=== PATIENT | male | born 1955 | race American Indian/Alaskan Native ===

== ENCOUNTER 2017-04-05 22:57 | Inpatient (IN) | payer MEDICAID ==
[~2017-04-05 22:57] MED LIST: ROCEPHIN/NS 2 GM/100 ML 2 GM/100 ML BAG IV ONE
[2017-04-05] MEDS ORDERED: NACL 0.9% 1000 ML 2,000 ML IV ONE (23:38)
[2017-04-05] MEDS ORDERED: NACL 0.9% 1000 ML 1,000 ML IV ONE (23:38)
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
[2017-04-05] MEDS ORDERED: ANCEF IV ONE (23:51)
[2017-04-05] MEDS ORDERED: NS IV ONE (23:51)
[2017-04-06 01:54] LABS: Hematocrit 40.9 % (35.5-45.6); Hemoglobin 13.8 gm/dl (11.8-15.2); Mean Corpuscular HGB Conc 34 % (32-34); Mean Corpuscular Hemoglobin 31 pg (28-32); Mean Corpuscular Volume 92 fl (84-94); Platelet Count 352 K/mm3 (140-440); Red Blood Count 4.44 M/mm3 (3.65-5.03); Red Cell Distribution Width 13.6 % (13.2-15.2); White Blood Count 12.3 K/mm3 (4.5-11.0)
[2017-04-06 02:04] LABS: INR 1.19 (0.87-1.13)
[2017-04-06 02:05] LABS: Partial Thromboplastin Time 27.4 Sec. (24.2-36.6)
--- NOTE | 2017-04-06 02:09 | Cat Scan Report ---
FINAL REPORT EXAM: CT CERVICAL SPINE WO CON HISTORY: ams FALL TECHNIQUE: Routine axial imaging was obtained of the cervical spine with sagittal and coronal reconstructions. FINDINGS: There is no evidence of fracture or soft tissue injury. The C1-C2 articulation appears intact. There is mild narrowing of the C3-C4 disc. The canal size is normal. There is moderate to severe narrowing of the C5-C6 and C6-C7 disc with endplate spurring. The pre vertebral soft tissues appear intact. IMPRESSION: No evidence of acute fracture or soft tissue injury. Degenerative arthritic changes as described.
--- NOTE | 2017-04-06 02:12 | Cat Scan Report ---
FINAL REPORT EXAM: CT HEAD/BRAIN WO CON HISTORY: Altered Mental Status TECHNIQUE: Routine axial imaging was obtained of the brain without IV contrast. FINDINGS: There is been a previous right temporal craniotomy. There encephalomalacia in the right temporal lobe. There is no evidence of acute stroke or hemorrhage. There is moderate generalized volume loss. The ventricular system is appropriate in size and is symmetric. The sinuses are remarkable for 13 millimeter mucous retention cyst/polyp in the right maxillary sinus. IMPRESSION: Previous right temporal craniotomy. No evidence of acute stroke or hemorrhage.
[2017-04-06 02:18] LABS: Alanine Aminotransferase 53 units/L (7-56); Albumin/Globulin Ratio 0.8 %; Alkaline Phosphatase 48 units/L (35-129); Anion Gap 23 mmol/L; BUN/Creatinine Ratio 52; Blood Urea Nitrogen 47 mg/dL (9-20); Calcium 8.4 mg/dL (8.4-10.2); Carbon Dioxide 24 mmol/L (22-30); Chloride 106.8 mmol/L (98-107); Glucose 110 mg/dL (75-100); Potassium 3.8 mmol/L (3.6-5.0); Sodium 150 mmol/L (137-145); Total Protein 6.8 g/dL (6.3-8.2)
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
[2017-04-06] MEDS ORDERED: TYLENOL PO ONE (02:36)
[2017-04-06 02:49] LABS: Urine Drugs of Abuse Note Disclamer
[2017-04-06 02:57] LABS: Bilirubin,Urine NEG (Negative); Blood,Urine LG (Negative); Ketones,Urine 20 mg/dL (Negative); Leukocyte Esterase,Urine SM (Negative); Nitrite,Urine NEG (Negative)
[2017-04-06 03:06] LABS: Basophils % (Manual) 0 % (0.0-1.8); Blastocytes % (Manual) 0 %; Diff Status Complete; Eosinophils % (Manual) 0 % (0.0-4.3); Platelet Estimate Consistent w Auto; RBC Morphology Normal
[2017-04-06] MEDS ORDERED: XYLOCAINE 2%/ EPI 1:200,000 INFILTRATI ONE (03:17)
[2017-04-06] MEDS ORDERED: VANCOMYCIN VIAL IV ONE (03:35)
[2017-04-06] MEDS ORDERED: VANCOMYCIN 1,750 MG in NACL 0.9% 500 ML 500 ML IV ONE (04:00)
[2017-04-06] MEDS ORDERED: VANCOMYCIN PHARMACY TO DOSE IV SCH (04:00)
--- NOTE | 2017-04-06 05:16 | Cat Scan Report ---
FINAL REPORT EXAM: CT ABDOMEN WO CON HISTORY: fever abd pain TECHNIQUE: Routine imaging was obtained of the abdomen extending from the diaphragmatic domes to the iliac crest without oral or IV contrast. FINDINGS: There is patchy airspace disease in the left lower lobe and lingula compatible with pneumonia. Pleural fluid is not seen. The liver, gallbladder, spleen, and pancreas appear normal. The adrenal glands are normal in configuration. The kidneys show no evidence of stones or hydronephrosis. There is a 19 millimeter simple cortical cyst in the right kidney medially. The bowel loops are normal in caliber and course. There is no evidence of free fluid or adenopathy. Skeletal structures reveal arthritic changes in the lower lumbar spine. IMPRESSION: Patchy airspace disease in left lower lobe and lingula compatible with pneumonia. No acute process in the abdomen. 19 millimeter simple cortical cyst in the right kidney.
[2017-04-06] MEDS ORDERED: ZITHROMAX 500 MG in NACL 0.9% 250ML 250 ML IV ONE (06:30)
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
--- NOTE | 2017-04-06 08:27 | XRay Report ---
PORTABLE CHEST: ams An AP portable view of the chest demonstrates a normal cardiac contour considering the limits of this technique. The lungs are clear with no evidence of infiltrate, fluid or failure. IMPRESSION: Normal portable chest.
--- NOTE | 2017-04-06 08:30 | XRay Report ---
XRAY RIGHT ANKLE 2 VIEWS: 04/05/17 22:57:00 CLINICAL: Injury and pain. FINDINGS: Moderate diffuse osteopenia. The ankle mortise is intact.No fracture or dislocation. Mild medial and lateral soft tissue swelling. No soft tissue air or foreign body. IMPRESSION: Mild soft tissue injury.
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
[2017-04-06] MEDS ORDERED: TYLENOL PO PRN (09:00)
[2017-04-06] MEDS ORDERED: ZOFRAN IV PRN (09:00)
[2017-04-06] MEDS ORDERED: DULCOLAX PR PRN (10:00)
[2017-04-06] MEDS: NACL 0.9% 1000 ML 1,000 ML IV SCH (13:08)
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
[2017-04-06] MEDS: VANCOMYCIN 1,250 MG in NACL 0.9% 250ML 250 ML IV SCH (18:40)
[2017-04-06] MEDS ORDERED: ROCEPHIN/NS 1 GM/50 ML 1 GM/50 ML BAG IV SCH (22:00)
[2017-04-06] MEDS: ZOSYN/NS 4.5GM/100ML 4.5 GM/100 ML VIAL IV SCH (22:58)
[2017-04-07 06:45] LABS: Basophils % (Auto) 0.2 % (0.0-1.8); Eosinophils % (Auto) 1.1 % (0.0-4.3); Hemoglobin 13.1 gm/dl (11.8-15.2); Mean Corpuscular HGB Conc 33 % (32-34); Mean Corpuscular Hemoglobin 31 pg (28-32); Mean Corpuscular Volume 94 fl (84-94); Platelet Count 275 K/mm3 (140-440); Red Blood Count 4.24 M/mm3 (3.65-5.03); Red Cell Distribution Width 14.2 % (13.2-15.2); White Blood Count 8.4 K/mm3 (4.5-11.0)
[2017-04-07] MEDS: ZOSYN/NS 4.5GM/100ML 4.5 GM/100 ML VIAL IV SCH ×3 (06:59→22:50)
[2017-04-07] MEDS: NACL 0.9% 1000 ML 1,000 ML IV SCH ×2 (07:01→18:39)
[2017-04-07] MEDS ORDERED: ZITHROMAX 500 MG in NACL 0.9% 250ML 250 ML IV ONE (07:30)
[2017-04-07 08:47] LABS: Anion Gap TNR mmol/L; BUN/Creatinine Ratio TNR; Blood Urea Nitrogen TNR mg/dL (9-20); Calcium TNR mg/dL (8.4-10.2); Carbon Dioxide TNR mmol/L (22-30); Chloride TNR mmol/L (98-107); Glucose TNR mg/dL (75-100); Potassium TNR mmol/L (3.6-5.0); Sodium TNR mmol/L (137-145)
--- NOTE | 2017-04-07 10:11 | Gastroenterology Progress Note ---
Assessment and Plan GI: mild increase LFT's after pt found down - doubt severe liver disease - awaiting labs and serologies - will follow for now Subjective Date of service: 04/07/17 Interval history: - no GI or liver complaints overnight Objective - Constitutional Vitals: Temp Pulse Resp BP Pulse Ox 98.7 F 95 H 18 134/71 94 04/07/17 08:47 04/07/17 08:47 04/07/17 08:47 04/07/17 08:47 04/07/17 08:47 General appearance: no acute distress - Respiratory Respiratory: bilateral: CTA - Cardiovascular Rhythm: regular Heart Sounds: Present: S1 & S2 - Gastrointestinal General gastrointestinal: Present: soft, non-tender - Labs CBC & Chem 7: 04/07/17 06:08 04/07/17 06:08 Labs: Laboratory Results - last 24 hr 04/06/17 04/06/17 04/06/17 12:50 12:50 16:28 WBC RBC Hgb Hct MCV MCH MCHC RDW Plt Count Lymph % (Auto) [place] % (Auto) Eos % (Auto) Baso % (Auto) Lymph # [place] # Eos # Baso # Seg Neutrophils % Seg Neutrophils # Sodium Potassium Chloride Carbon Dioxide Anion Gap BUN Creatinine Estimated GFR BUN/Creatinine Ratio Glucose Lactic Acid Calcium Total Creatine Kinase C-Reactive Protein 8.30 H TSH 0.138 L Thyroxine (T4) 9.0 04/06/17 04/07/17 04/07/17 16:34 06:08 06:08 WBC 8.4 RBC 4.24 Hgb 13.1 Hct 40.0 MCV 94 MCH 31 MCHC 33 RDW 14.2 Plt Count 275 Lymph % (Auto) 18.3 [place] % (Auto) 11.4 H Eos % (Auto) 1.1 Baso % (Auto) 0.2 Lymph # 1.5 [place] # 1.0 H Eos # 0.1 Baso # 0.0 Seg Neutrophils % 69.0 Seg Neutrophils # 5.8 Sodium TNR Potassium TNR Chloride TNR Carbon Dioxide TNR Anion Gap TNR BUN TNR Creatinine TNR Estimated GFR TNR BUN/Creatinine Ratio TNR Glucose TNR Lactic Acid Calcium TNR Total Creatine Kinase 5523 H C-Reactive Protein TSH Thyroxine (T4) 04/07/17 07:10 WBC RBC Hgb Hct MCV MCH MCHC RDW Plt Count Lymph % (Auto) [place] % (Auto) Eos % (Auto) Baso % (Auto) Lymph # [place] # Eos # Baso # Seg Neutrophils % Seg Neutrophils # Sodium Potassium Chloride Carbon Dioxide Anion Gap BUN Creatinine Estimated GFR BUN/Creatinine Ratio Glucose Lactic Acid 1.80 Calcium Total Creatine Kinase C-Reactive Protein TSH Thyroxine (T4)
[2017-04-07] MEDS: ZITHROMAX 500 MG in NACL 0.9% 250ML 250 ML IV SCH (11:59)
[2017-04-07 12:25] LABS: Anion Gap 15 mmol/L; BUN/Creatinine Ratio 32; Blood Urea Nitrogen 19 mg/dL (9-20); Calcium 8.1 mg/dL (8.4-10.2); Carbon Dioxide 22 mmol/L (22-30); Glucose 87 mg/dL (75-100); Potassium 3.5 mmol/L (3.6-5.0); Sodium 140 mmol/L (137-145)
--- NOTE | 2017-04-07 13:34 | Progress Note ---
Assessment and Plan Assessment: 1) Sepsis: improving. Etiology most likely multifactorial - CAP/aspiration pneumonia +/- UTI +/- skin and soft tissue infection. CRP=8 2) CAP versus aspiration pneumonia 3) UTI: mild 4) Cellulitis of the right hip versus crush injury - CT showed cellulitis 5) Scrotal and penile skin excoriation / cellulitis ? 6) Elevated LFTs from sepsis 7) elevated CK ? early rhabdo from leg injury Plan: -follow-up blood cultures, urine culture - follow-up procalcitonin -continue zosyn, azithromycin and vancomycin -monitor LFTs Thank you Dr Apodaca for your consultation, will follow up with you. Phyllis Muñiz MD Infectious Diseases Specialist [facility] ([facility]) M [phone] O [phone] Subjective Date of service: 04/07/17 Interval history: Feels better, still pain at genital area, fever trending down Current Antimicrobials: zosyn 04/07 Azithromycin 04/06 Vancomycin 04/06 Previous Antimicrobials: Ceftriaxone Microbiology: Blood cultures: 04/06 ngtd Urine cultures: Objective - Exam Narrative Exam: General appearance: Alert in NAD, conversant Eyes: anicteric sclerae, moist conjunctivae; no lid-lag; PERRLA HENT: Atraumatic; oropharynx clear Neck: Trachea midline; supple, no thyromegaly or lymphadenopathy Lungs: marilyn rhonchi CV: tachycardia Abdomen: Soft, non-tender Extremities: right hip area with erythema and blister/bullae formation Skin: Normal temperature, turgor and texture; no rash, ulcers or subcutaneous nodules Gen: penile and scrotal skin with multiple skin excoriation and severe tenderness Psych: stable mood Neuro: alert and oriented x 1. contracted legs. Lines: No CVL / PICC - Constitutional Vitals: Vital Signs Temp Pulse Resp BP Pulse Ox 98.7 F 95 H 18 134/71 94 04/07/17 08:47 04/07/17 08:47 04/07/17 08:47 04/07/17 08:47 04/07/17 08:47 Temperature -Last 24 Hours Temperature 98.7 F Temperature 99.5 F Temperature 99.5 F Temperature 102.3 F - Labs CBC & Chem 7: 04/07/17 06:08 04/07/17 11:49 Labs: Abnormal lab results 04/06/17 04/06/17 04/06/17 Range/Units 12:50 16:28 16:34 [place] % (Auto) (0.0-7.3) % [place] # (0.0-0.8) K/mm3 Creatinine (0.8-1.5) mg/dL Calcium (8.4-10.2) mg/dL Total Creatine Kinase 5523 H (55-170) units/L C-Reactive Protein 8.30 H (0.00-1.30) mg/dL TSH 0.138 L (0.270-4.200) mlU/mL 04/07/17 04/07/17 Range/Units 06:08 11:49 [place] % (Auto) 11.4 H (0.0-7.3) % [place] # 1.0 H (0.0-0.8) K/mm3 Creatinine 0.6 L (0.8-1.5) mg/dL Calcium 8.1 L (8.4-10.2) mg/dL Total Creatine Kinase (55-170) units/L C-Reactive Protein (0.00-1.30) mg/dL TSH (0.270-4.200) mlU/mL
--- NOTE | 2017-04-07 16:30 | Progress Note ---
Assessment and Plan - Imaging and Cardiology CT scan - abdomen: image reviewed (CT scan of the pelvis demonstrated aforementioned cellulitis. CT scan of the abdomen and pelvis, demonstrates patchy airspace disease in the left lower lobe and lingula compatible with pneumonia.) CT Scan - head: image reviewed (CT scan of the brain and cervical spine were negative for acute findings, ) Assessment and Plan Assessment and plan: Patient is is a 62 years old black male who presents to the Emergency department by EMS. Patient alert to self at present time no family around him, therefore history is limited, unable to obtained history. Per chart and ER physician; Patient found down by bystanders/neighbor for uncertain duration of time and uncertain mechanism. In the Emergency Department, patient was found to be septic, febrile and tachycardic, with hypernatremia, lower left lobe pneumonia, and impressive right thigh/gluteal cellulitis. Severe sepsis secondary right thigh/gluteal cellulitis VS pneumonia Most likely due to cellulitis VS pneumonia Rule out deeper infection Patient meets sepsis criteria with fever, leukocytosis,and lactic acidosis and tachycardia Blood cultures and urine cultures collected prior antibiotic Follow blood cultures Aggressive IV fluid resuscitation and continuous IV fluid Initiated empiric treatment with IV vancomycin, Rocephin and azithromycin Supportive care. Right thigh/gluteal cellulitis CT scan of the pelvis demonstrated aforementioned cellulitis. Initiated empiric treatment with IV vancomycin, Rocephin and azithromycin Infectious diseases consulted Wound care consult Left lower Lobe pneumonia CT scan of the abdomen and pelvis, demonstrates patchy airspace disease in the left lower lobe and lingula compatible with pneumonia. Initiated empiric treatment with IV vancomycin, Rocephin and azithromycin Acute Cystitis IV fluid hydration and patient is on empiric IV antibiotic Urine culture collected Thrombocytopenia Closely monitor Elevated total bilirubin/AST Closely monitor LFT's GI consulted Mild malnutrition Nutrutino consulted Lactic acidosis Secondary to sepsis We will repeat lactic acid level Leukocytosis Secondary to sepsis We will repeat Possible Hyperthyroidism we will obtain Thyroxine and Thyroid perox Skin breakdown skin breakdown to tip of penis with yellow drainage Wound Care consult DVT prophylaxis Lovenox Advance Directives: Yes VTE prophylaxis?: Chemical Contraindication Mechanical VTE Prophylaxis: Treatment Not Indicated Plan of care discussed with patient/family: Yes Subjective Date of service: 04/07/17 Principal diagnosis: Sepsis/Cellulitis Interval history: Symptomatically better Objective - Constitutional Vitals: Vital Signs - 12hr 04/07/17 04/07/17 08:47 15:13 Temperature 98.7 F 99.3 F Pulse Rate 95 H 64 Respiratory 18 20 Rate Blood Pressure 134/71 118/69 O2 Sat by Pulse 94 97 Oximetry General appearance: Present: no acute distress, well-nourished - EENT Eyes: PERRL, EOM intact ENT: hearing intact, clear oral mucosa Ears: bilateral: normal - Neck Neck: supple, normal ROM - Respiratory Respiratory effort: normal Respiratory: bilateral: CTA - Breasts Breasts: normal - Cardiovascular Rhythm: regular Heart Sounds: Present: S1 & S2. Absent: gallop, rub Extremities: pulses intact, No edema, normal color, Full ROM - Gastrointestinal General gastrointestinal: Present: soft, non-tender, non-distended, normal bowel sounds - Genitourinary Male genitourinary: normal - Integumentary Integumentary: clear, warm, dry - Musculoskeletal Musculoskeletal: 1, strength equal bilaterally - Neurologic Neurologic: moves all extremities - Psychiatric Psychiatric: memory intact, appropriate mood/affect, intact judgment & insight - Labs CBC & Chem 7: 04/07/17 06:08 04/08/17 09:52 Labs: Abnormal lab results 04/06/17 04/06/17 04/07/17 Range/Units 16:28 16:34 06:08 [place] % (Auto) 11.4 H (0.0-7.3) % [place] # 1.0 H (0.0-0.8) K/mm3 Creatinine (0.8-1.5) mg/dL Calcium (8.4-10.2) mg/dL Total Creatine Kinase 5523 H (55-170) units/L C-Reactive Protein 8.30 H (0.00-1.30) mg/dL 04/07/17 Range/Units 11:49 [place] % (Auto) (0.0-7.3) % [place] # (0.0-0.8) K/mm3 Creatinine 0.6 L (0.8-1.5) mg/dL Calcium 8.1 L (8.4-10.2) mg/dL Total Creatine Kinase (55-170) units/L C-Reactive Protein (0.00-1.30) mg/dL
[2017-04-07] MEDS: VANCOMYCIN 1,250 MG in NACL 0.9% 250ML 250 ML IV SCH ×2 (18:42→18:44)
[2017-04-08] MEDS: NACL 0.9% 1000 ML 1,000 ML IV SCH ×2 (06:12→18:41)
[2017-04-08] MEDS: ZOSYN/NS 4.5GM/100ML 4.5 GM/100 ML VIAL IV SCH ×3 (06:12→22:16)
[2017-04-08] MEDS: VANCOMYCIN 1,250 MG in NACL 0.9% 250ML 250 ML IV SCH ×4 (06:23→18:38)
[2017-04-08] MEDS: ZITHROMAX 500 MG in NACL 0.9% 250ML 250 ML IV SCH (09:38)
[2017-04-08 11:42] LABS: Alanine Aminotransferase 42 units/L (7-56); Albumin 1.9 g/dL (3.9-5); Albumin/Globulin Ratio 0.5 %; Alkaline Phosphatase 39 units/L (35-129); Anion Gap 14 mmol/L; BUN/Creatinine Ratio 18; Blood Urea Nitrogen 9 mg/dL (9-20); Calcium 7.9 mg/dL (8.4-10.2); Carbon Dioxide 22 mmol/L (22-30); Chloride 105.7 mmol/L (98-107); Glucose 114 mg/dL (75-100); Potassium 3.6 mmol/L (3.6-5.0); Sodium 138 mmol/L (137-145); Total Protein 5.4 g/dL (6.3-8.2)
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
--- NOTE | 2017-04-08 14:52 | Gastroenterology Progress Note ---
Assessment and Plan Liver: pt w/o known h/o prior liver presented w/ mild increase number now resolved - no need further liver eval at this time - other issues per primary team - call if needed Subjective Date of service: 04/08/17 Interval history: - no GI pr liver complaints overnight Objective - Constitutional Vitals: Temp Pulse Resp BP Pulse Ox 98.2 F 79 20 138/78 93 04/08/17 07:15 04/08/17 07:15 04/08/17 07:15 04/08/17 07:15 04/08/17 07:15 General appearance: no acute distress - Respiratory Respiratory: bilateral: CTA - Cardiovascular Rhythm: regular Heart Sounds: Present: S1 & S2 - Gastrointestinal General gastrointestinal: Present: soft, non-tender - Labs CBC & Chem 7: 04/07/17 06:08 04/08/17 09:52 Labs: Laboratory Results - last 24 hr 04/08/17 09:52 Sodium 138 Potassium 3.6 Chloride 105.7 Carbon Dioxide 22 Anion Gap 14 BUN 9 Creatinine 0.5 L Estimated GFR > 60 BUN/Creatinine Ratio 18 Glucose 114 H Calcium 7.9 L Total Bilirubin 0.80 AST 115 H ALT 42 Alkaline Phosphatase 39 Total Protein 5.4 L D Albumin 1.9 L Albumin/Globulin Ratio 0.5
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
[2017-04-09] MEDS: ZOSYN/NS 4.5GM/100ML 4.5 GM/100 ML VIAL IV SCH ×3 (05:35→22:47)
[2017-04-09] MEDS: VANCOMYCIN 1,250 MG in NACL 0.9% 250ML 250 ML IV SCH ×2 (05:36→18:57)
[2017-04-09] MEDS: NACL 0.9% 1000 ML 1,000 ML IV SCH ×2 (06:28→22:50)
[2017-04-09 08:05] LABS: Hematocrit 40.6 % (35.5-45.6); Hemoglobin 13.5 gm/dl (11.8-15.2); Mean Corpuscular HGB Conc 33 % (32-34); Mean Corpuscular Hemoglobin 31 pg (28-32); Mean Corpuscular Volume 92 fl (84-94); Platelet Count 288 K/mm3 (140-440); Red Blood Count 4.39 M/mm3 (3.65-5.03); Red Cell Distribution Width 13.9 % (13.2-15.2); White Blood Count 6.1 K/mm3 (4.5-11.0)
[2017-04-09 08:18] LABS: Alanine Aminotransferase 46 units/L (7-56); Albumin 2.2 g/dL (3.9-5); Albumin/Globulin Ratio 0.6 %; Alkaline Phosphatase 45 units/L (35-129); BUN/Creatinine Ratio 12; Blood Urea Nitrogen 6 mg/dL (9-20); Calcium 7.9 mg/dL (8.4-10.2); Carbon Dioxide 24 mmol/L (22-30); Glucose 99 mg/dL (75-100); Total Protein 5.8 g/dL (6.3-8.2)
[2017-04-09 08:19] LABS: Anion Gap 13 mmol/L; Chloride 107.6 mmol/L (98-107); Potassium 3.6 mmol/L (3.6-5.0); Sodium 141 mmol/L (137-145)
[2017-04-09 09:26] LABS: Anisocytosis 1+; Basophils % (Manual) 0 % (0.0-1.8); Blastocytes % (Manual) 0 %; Burr Cells 1+; Diff Status Complete; Target Cells Rare
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
[2017-04-09] MEDS: ZITHROMAX 500 MG in NACL 0.9% 250ML 250 ML IV SCH (11:17)
--- NOTE | 2017-04-09 11:30 | Progress Note ---
Assessment and Plan Assessment: 1) Sepsis: resolved. Etiology most likely multifactorial - CAP/aspiration pneumonia +/- UTI +/- skin and soft tissue infection. CRP=8 2) CAP versus aspiration pneumonia 3) UTI: mild 4) Cellulitis of the right hip versus crush injury - CT showed cellulitis 5) Scrotal and penile skin excoriation / cellulitis ?. Groin wound +GNR 6) Elevated LFTs from sepsis 7) elevated CK ? early rhabdo from leg injury Plan: -continue zosyn, azithromycin and vancomycin -day 4 -ok to d/c home on levaquin 750 mg po qday and docycycline 100 mg po q12h total 10 days from 04/06 I am signing off Thank you Dr Apodaca for your consultation, will follow up with you. Phyllis Muñiz MD Infectious Diseases Specialist [facility] ([facility]) M [phone] O [phone] Subjective Date of service: 04/09/17 Principal diagnosis: Sepsis/Cellulitis Interval history: Feels better, no fever Current Antimicrobials: zosyn 04/07 Azithromycin 04/06 Vancomycin 04/06 Previous Antimicrobials: Ceftriaxone Microbiology: Blood cultures: 04/06 ngtd Urine cultures: Groin wound: GNR Objective - Exam Narrative Exam: General appearance: Alert in NAD, conversant Eyes: anicteric sclerae, moist conjunctivae; no lid-lag; PERRLA HENT: Atraumatic; oropharynx clear Neck: Trachea midline; supple, no thyromegaly or lymphadenopathy Lungs: marilyn rhonchi CV: tachycardia Abdomen: Soft, non-tender Extremities: right hip area with erythema and blister/bullae formation Skin: Normal temperature, turgor and texture; no rash, ulcers or subcutaneous nodules Gen: penile and scrotal skin with multiple skin excoriation and decreased tenderness Psych: stable mood Neuro: alert and oriented x 1. contracted legs. Lines: No CVL / PICC - Constitutional Vitals: Vital Signs Temp Pulse Resp BP Pulse Ox 98.0 F 85 24 130/77 89 04/09/17 07:51 04/09/17 07:51 04/09/17 07:51 04/09/17 07:51 04/09/17 07:51 Temperature -Last 24 Hours Temperature 98.0 F Temperature 99.0 F Temperature 98.8 F - Labs CBC & Chem 7: 04/09/17 07:38 04/09/17 07:38 Labs: Abnormal lab results 04/08/17 04/09/17 04/09/17 Range/Units 09:52 07:38 07:38 Seg Neuts % (Manual) 80.0 H (40.0-70.0) % Lymphocytes % (Manual) 10.0 L (13.4-35.0) % Monocytes % (Manual) 8.0 H (0.0-7.3) % Lymphocytes # (Manual) 0.6 L (1.2-5.4) K/mm3 Chloride 107.6 H (98-107) mmol/L BUN 6 L (9-20) mg/dL Creatinine 0.5 L 0.5 L (0.8-1.5) mg/dL Glucose 114 H (75-100) mg/dL Calcium 7.9 L 7.9 L (8.4-10.2) mg/dL AST 115 H 100 H (5-40) units/L Total Creatine Kinase (55-170) units/L Total Protein 5.4 L D 5.8 L (6.3-8.2) g/dL Albumin 1.9 L 2.2 L (3.9-5) g/dL 04/09/17 Range/Units 07:38 Seg Neuts % (Manual) (40.0-70.0) % Lymphocytes % (Manual) (13.4-35.0) % Monocytes % (Manual) (0.0-7.3) % Lymphocytes # (Manual) (1.2-5.4) K/mm3 Chloride (98-107) mmol/L BUN (9-20) mg/dL Creatinine (0.8-1.5) mg/dL Glucose (75-100) mg/dL Calcium (8.4-10.2) mg/dL AST (5-40) units/L Total Creatine Kinase 877 H (55-170) units/L Total Protein (6.3-8.2) g/dL Albumin (3.9-5) g/dL
[2017-04-09] MEDS: ZINC OXIDE TP SCH (22:49)
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
[2017-04-10] MEDS: VANCOMYCIN 1,250 MG in NACL 0.9% 250ML 250 ML IV SCH (05:10)
[2017-04-10] MEDS: ZOSYN/NS 4.5GM/100ML 4.5 GM/100 ML VIAL IV SCH ×2 (05:10→15:03)
[2017-04-10] MEDS: ZINC OXIDE TP SCH (10:59)
[2017-04-10] MEDS: ZITHROMAX 500 MG in NACL 0.9% 250ML 250 ML IV SCH (11:07)
[2017-04-10 16:23] VITALS: BP 121/72
[2017-04-11] MEDS ORDERED: ZITHROMAX PO SCH (10:00)
== END 2017-04-10 19:45 | disposition home health service (06) | DRG 871 ==
LOC: ED 22:57 → 3A 04-06 08:28
PROVIDERS: ADMIT Internal Medicine; ATTEND Internal Medicine
DX: A41.9 Sepsis, unspecified organism (principal); J69.0 Pneumonitis due to inhalation of food and vomit; G92 Toxic encephalopathy; E87.0 Hyperosmolality and hypernatremia; E44.1 Mild protein-calorie malnutrition; N30.00 Acute cystitis without hematuria; L03.317 Cellulitis of buttock; M62.82 Rhabdomyolysis; N49.2 Inflammatory disorders of scrotum; I10 Essential (primary) hypertension; D69.6 Thrombocytopenia, unspecified; Z68.30 Body mass index [BMI] 30.0-30.9, adult; R65.20 Severe sepsis without septic shock; E03.9 Hypothyroidism, unspecified
CPT/HCPCS: 36415; 70450; 71010; 72125; 72170; 72192; 74150; 80048; 80053; 80307; 80320; 81001; 82140; 82550; 82962; 84436; 84443; 84484; 85007; 85025; 85610; 85730; 86140; 86800; 87040; 87076; 87086; 87116; 87186; 87493; 93005; 93010; 96361; 96365; 96366; 96367; 96368; A6250; G0480; J0456; J0690; J0696; J2543; J3370; J7030; J7040; J7050

== ENCOUNTER 2017-04-20 19:12 | Inpatient (IN) | payer MEDICAID ==
[2017-04-21 01:17] LABS: Hematocrit 42.7 % (35.5-45.6); Mean Corpuscular HGB Conc 33 % (32-34); Mean Corpuscular Hemoglobin 31 pg (28-32); Mean Corpuscular Volume 95 fl (84-94); Platelet Count 146 K/mm3 (140-440); Red Cell Distribution Width 14.4 % (13.2-15.2); White Blood Count 4.5 K/mm3 (4.5-11.0)
[2017-04-21 01:26] LABS: INR 1.01 (0.87-1.13)
[2017-04-21 01:27] LABS: Partial Thromboplastin Time 31.3 Sec. (24.2-36.6)
[2017-04-21] MEDS ORDERED: NACL 0.9% 1000 ML IV ONE (01:41)
[2017-04-21 01:58] LABS: Alanine Aminotransferase 33 units/L (7-56); Albumin/Globulin Ratio 0.7 %; Alkaline Phosphatase 92 units/L (35-129); Anion Gap 18 mmol/L; BUN/Creatinine Ratio 7; Blood Urea Nitrogen 5 mg/dL (9-20); Calcium 8.8 mg/dL (8.4-10.2); Carbon Dioxide 27 mmol/L (22-30); Chloride 99.7 mmol/L (98-107); Creatine Kinase 179 units/L (55-170); Glucose 81 mg/dL (75-100); Potassium 3.1 mmol/L (3.6-5.0); Sodium 142 mmol/L (137-145); Total Protein 7.6 g/dL (6.3-8.2)
--- NOTE | 2017-04-21 02:30 | Cat Scan Report ---
FINAL REPORT EXAM: CT HEAD/BRAIN WO CON HISTORY: Altered Mental Status TECHNIQUE: Routine axial imaging was obtained the brain without IV contrast. Comparison is made to the study 04/06/2017. FINDINGS: There is previous right temporal craniotomy. There is moderate generalized volume loss. There is stable encephalomalacia in the right frontal lobe. There is no evidence of acute stroke or hemorrhage. The ventricular system is appropriate in size. The posterior fossa structures reveal volume loss. The sinuses reveal localized mucosal thickening the right max sinus. The mastoid air cells are well pneumatized IMPRESSION: Previous right temporal craniotomy. Encephalomalacia in the right frontal lobe. No evidence of acute stroke or hemorrhage.
[2017-04-21] MEDS ORDERED: NACL 0.9% 1000 ML 2,000 ML ONE (03:45)
[2017-04-21 03:52] LABS: Urine Drugs of Abuse Note Disclamer
--- NOTE | 2017-04-21 04:06 | Emergency Department Report ---
ED Altered Mental Status HPI - General Chief Complaint: Altered Mental Status Stated Complaint: SORES Time Seen by Provider: 04/21/17 00:13 Source: patient, family Mode of arrival: Wheelchair Limitations: Other - History of Present Illness Initial Comments: This 62-year-old male brought in by family for evaluation of mental status changes. Patient refusing care from relatives. He was seen in this hospital for similar problems a few days ago. Patient appears confused and he is a very poor historian Complaint: altered mental status, confusion -: Gradual - Related Data Previous Rx's Medication Instructions Recorded Last Taken Type Doxycycline [Vibramycin CAP] 100 mg PO Q12HR 7 Days 04/09/17 Unknown Rx Levofloxacin [Levaquin] 750 mg PO QDAY #7 tablet 04/09/17 Unknown Rx Allergies Allergy/AdvReac Type Severity Reaction Status Date / Time No Known Allergies Allergy Verified 04/20/17 20:09 ED Review of Systems ROS: Stated complaint: SORES Other details as noted in HPI Comment: Unobtainable due to pts medical conditions ED Past Medical Hx - Past Medical History Hx CVA: Yes (? RUE contracted) Additional medical history: pt denies but right upper extremity contracted noted. - Social History Smoking Status: Never Smoker Substance Use Type: None - Medications Home Medications: Home Medications Medication Instructions Recorded Confirmed Last Taken Type Doxycycline [Vibramycin CAP] 100 mg PO Q12HR 7 Days 04/09/17 Unknown Rx Levofloxacin [Levaquin] 750 mg PO QDAY #7 tablet 04/09/17 Unknown Rx ED Physical Exam - General Limitations: Altered Mental Status, Other General appearance: in no apparent distress, anxious - Head Head exam: Present: atraumatic, normocephalic - Eye Eye exam: Present: normal appearance, PERRL, EOMI. Absent: scleral icterus, conjunctival injection, nystagmus - ENT ENT exam: Present: mucous membranes dry, TM's normal bilaterally - Neck Neck exam: Present: normal inspection, full ROM. Absent: tenderness - Respiratory Respiratory exam: Present: normal lung sounds bilaterally. Absent: respiratory distress, wheezes, rales, rhonchi, stridor, chest wall tenderness, accessory muscle use, decreased breath sounds, prolonged expiratory, other - Cardiovascular Cardiovascular Exam: Present: regular rate, normal rhythm, normal heart sounds. Absent: bradycardia, tachycardia, systolic murmur, diastolic murmur - GI/Abdominal GI/Abdominal exam: Present: soft, normal bowel sounds. Absent: distended, tenderness, guarding, rebound, rigid, hyperactive bowel sounds, hypoactive bowel sounds, organomegaly, mass, pulsatile mass - Rectal Rectal exam: Present: deferred - Extremities Exam Extremities exam: Present: normal inspection, full ROM, normal capillary refill. Absent: tenderness, pedal edema - Back Exam Back exam: Present: normal inspection, full ROM, CVA tenderness (L). Absent: tenderness, CVA tenderness (R), muscle spasm, paraspinal tenderness - Neurological Exam Neurological exam: Present: altered, CN II-XII intact, motor sensory deficit, other. Absent: alert ED Course Vital Signs 04/20/17 04/21/17 04/21/17 20:09 00:08 00:09 Temperature 98.5 F Pulse Rate 68 Respiratory 18 Rate Blood Pressure 133/83 Blood Pressure [Left] O2 Sat by Pulse 97 98 98 Oximetry 04/21/17 04/21/17 04/21/17 00:10 00:11 00:13 Temperature Pulse Rate Respiratory Rate Blood Pressure 133/76 133/76 133/76 Blood Pressure [Left] O2 Sat by Pulse 98 98 98 Oximetry 04/21/17 04/21/17 04/21/17 00:14 00:15 00:16 Temperature 99 F Pulse Rate 108 H Respiratory 16 16 Rate Blood Pressure 133/76 Blood Pressure 133/76 [Left] O2 Sat by Pulse 98 99 98 Oximetry 04/21/17 04/21/17 04/21/17 01:24 01:25 01:27 Temperature Pulse Rate Respiratory Rate Blood Pressure 145/76 145/76 145/76 Blood Pressure [Left] O2 Sat by Pulse 95 98 97 Oximetry 04/21/17 04/21/17 04/21/17 01:29 01:31 01:32 Temperature Pulse Rate Respiratory Rate Blood Pressure 145/76 112/61 112/61 Blood Pressure [Left] O2 Sat by Pulse 97 90 90 Oximetry 04/21/17 04/21/17 04/21/17 01:33 01:35 01:37 Temperature Pulse Rate Respiratory Rate Blood Pressure 112/61 112/61 112/61 Blood Pressure [Left] O2 Sat by Pulse 94 96 97 Oximetry 04/21/17 04/21/17 04/21/17 01:39 01:41 01:43 Temperature Pulse Rate Respiratory Rate Blood Pressure 112/61 112/61 112/61 Blood Pressure [Left] O2 Sat by Pulse 97 97 98 Oximetry 04/21/17 04/21/17 04/21/17 01:45 01:47 01:49 Temperature Pulse Rate Respiratory Rate Blood Pressure 112/61 112/61 112/61 Blood Pressure [Left] O2 Sat by Pulse 97 96 96 Oximetry 04/21/17 04/21/17 04/21/17 01:51 01:53 01:55 Temperature Pulse Rate Respiratory Rate Blood Pressure 112/61 112/61 112/61 Blood Pressure [Left] O2 Sat by Pulse 97 97 96 Oximetry 04/21/17 04/21/17 04/21/17 01:57 01:59 02:00 Temperature Pulse Rate Respiratory Rate Blood Pressure 112/61 112/61 130/90 Blood Pressure [Left] O2 Sat by Pulse 96 97 96 Oximetry 04/21/17 04/21/17 04/21/17 02:01 02:03 02:05 Temperature Pulse Rate Respiratory Rate Blood Pressure 130/90 145/76 145/76 Blood Pressure [Left] O2 Sat by Pulse 96 93 98 Oximetry 04/21/17 04/21/17 04/21/17 02:07 02:09 02:11 Temperature Pulse Rate Respiratory Rate Blood Pressure 145/76 145/76 145/76 Blood Pressure [Left] O2 Sat by Pulse 97 94 96 Oximetry 04/21/17 04/21/17 04/21/17 02:13 02:15 02:17 Temperature Pulse Rate Respiratory Rate Blood Pressure 145/76 145/76 145/76 Blood Pressure [Left] O2 Sat by Pulse 98 96 Oximetry 04/21/17 04/21/17 04/21/17 02:19 02:21 02:23 Temperature Pulse Rate Respiratory Rate Blood Pressure 145/76 145/76 145/76 Blood Pressure [Left] O2 Sat by Pulse 97 98 96 Oximetry 04/21/17 04/21/17 04/21/17 02:25 02:27 02:29 Temperature Pulse Rate Respiratory Rate Blood Pressure 145/76 145/76 145/76 Blood Pressure [Left] O2 Sat by Pulse 95 94 93 Oximetry 04/21/17 04/21/17 04/21/17 02:31 02:33 02:35 Temperature Pulse Rate Respiratory Rate Blood Pressure 145/76 130/90 130/90 Blood Pressure [Left] O2 Sat by Pulse 94 95 94 Oximetry 04/21/17 04/21/17 04/21/17 02:37 02:39 02:41 Temperature Pulse Rate Respiratory Rate Blood Pressure 130/90 130/90 131/82 Blood Pressure [Left] O2 Sat by Pulse 93 94 93 Oximetry 04/21/17 04/21/17 04/21/17 02:43 02:45 02:47 Temperature Pulse Rate Respiratory Rate Blood Pressure 131/82 131/82 131/82 Blood Pressure [Left] O2 Sat by Pulse 93 95 95 Oximetry 04/21/17 04/21/17 04/21/17 02:49 02:51 02:53 Temperature Pulse Rate Respiratory Rate Blood Pressure 131/82 131/82 131/82 Blood Pressure [Left] O2 Sat by Pulse 95 95 94 Oximetry 04/21/17 04/21/17 02:55 02:57 Temperature Pulse Rate Respiratory Rate Blood Pressure 131/82 131/82 Blood Pressure [Left] O2 Sat by Pulse 94 95 Oximetry - Consultations Consultation #1: 04/21/17 04:10 I discussed case with Dr. Ozuna, he accepts pt's admission - Lab Data Result diagrams: 04/21/17 00:56 04/21/17 00:56 Lab Results 04/21/17 04/21/17 04/21/17 Range/Units 00:56 00:56 00:56 WBC 4.5 (4.5-11.0) K/mm3 RBC 4.50 (3.65-5.03) M/mm3 Hgb 14.0 (11.8-15.2) gm/dl Hct 42.7 (35.5-45.6) % MCV 95 H (84-94) fl MCH 31 (28-32) pg MCHC 33 (32-34) % RDW 14.4 (13.2-15.2) % Plt Count 146 (140-440) K/mm3 [place] % (Auto) [employer] Technician PT 13.8 (12.2-14.9) Sec. INR 1.01 (0.87-1.13) APTT 31.3 (24.2-36.6) Sec. Sodium (137-145) mmol/L Potassium (3.6-5.0) mmol/L Chloride (98-107) mmol/L Carbon Dioxide (22-30) mmol/L Anion Gap mmol/L BUN (9-20) mg/dL Creatinine (0.8-1.5) mg/dL Estimated GFR ml/min BUN/Creatinine Ratio % Glucose (75-100) mg/dL Lactic Acid 3.70 H* (0.7-2.0) mmol/L Calcium (8.4-10.2) mg/dL Magnesium (1.7-2.3) mg/dL Total Bilirubin (0.1-1.2) mg/dL AST (5-40) units/L ALT (7-56) units/L Alkaline Phosphatase (35-129) units/L Ammonia (25-60) umol/L Total Creatine Kinase (55-170) units/L Troponin T (0.00-0.029) ng/mL NT-Pro-B Natriuret Pep (0-900) pg/mL Total Protein (6.3-8.2) g/dL Albumin (3.9-5) g/dL Albumin/Globulin Ratio % TSH (0.270-4.200) mlU/mL 04/21/17 04/21/17 04/21/17 Range/Units 00:56 00:56 00:56 WBC (4.5-11.0) K/mm3 RBC (3.65-5.03) M/mm3 Hgb (11.8-15.2) gm/dl Hct (35.5-45.6) % MCV (84-94) fl MCH (28-32) pg MCHC (32-34) % RDW (13.2-15.2) % Plt Count (140-440) K/mm3 [place] % (Auto) PT (12.2-14.9) Sec. INR (0.87-1.13) APTT (24.2-36.6) Sec. Sodium 142 (137-145) mmol/L Potassium 3.1 L (3.6-5.0) mmol/L Chloride 99.7 (98-107) mmol/L Carbon Dioxide 27 (22-30) mmol/L Anion Gap 18 mmol/L BUN 5 L (9-20) mg/dL Creatinine 0.7 L (0.8-1.5) mg/dL Estimated GFR > 60 ml/min BUN/Creatinine Ratio 7 % Glucose 81 (75-100) mg/dL Lactic Acid (0.7-2.0) mmol/L Calcium 8.8 (8.4-10.2) mg/dL Magnesium 1.90 (1.7-2.3) mg/dL Total Bilirubin 0.80 (0.1-1.2) mg/dL AST 49 H (5-40) units/L ALT 33 (7-56) units/L Alkaline Phosphatase 92 (35-129) units/L Ammonia 20.0 L (25-60) umol/L Total Creatine Kinase 179 H (55-170) units/L Troponin T 0.011 (0.00-0.029) ng/mL NT-Pro-B Natriuret Pep (0-900) pg/mL Total Protein 7.6 (6.3-8.2) g/dL Albumin 3.0 L (3.9-5) g/dL Albumin/Globulin Ratio 0.7 % TSH 3.050 (0.270-4.200) mlU/mL 04/21/ Range/Units 02:28 WBC (4.5-11.0) K/mm3 RBC (3.65-5.03) M/mm3 Hgb (11.8-15.2) gm/dl Hct (35.5-45.6) % MCV (84-94) fl MCH (28-32) pg MCHC (32-34) % RDW (13.2-15.2) % Plt Count (140-440) K/mm3 [place] % (Auto) PT (12.2-14.9) Sec. INR (0.87-1.13) APTT (24.2-36.6) Sec. Sodium (137-145) mmol/L Potassium (3.6-5.0) mmol/L Chloride (98-107) mmol/L Carbon Dioxide (22-30) mmol/L Anion Gap mmol/L BUN (9-20) mg/dL Creatinine (0.8-1.5) mg/dL Estimated GFR ml/min BUN/Creatinine Ratio % Glucose (75-100) mg/dL Lactic Acid (0.7-2.0) mmol/L Calcium (8.4-10.2) mg/dL Magnesium (1.7-2.3) mg/dL Total Bilirubin (0.1-1.2) mg/dL AST (5-40) units/L ALT (7-56) units/L Alkaline Phosphatase (35-129) units/L Ammonia (25-60) umol/L Total Creatine Kinase (55-170) units/L Troponin T (0.00-0.029) ng/mL NT-Pro-B Natriuret Pep 1507 H (0-900) pg/mL Total Protein (6.3-8.2) g/dL Albumin (3.9-5) g/dL Albumin/Globulin Ratio % TSH (0.270-4.200) mlU/mL Critical Care Time: No Critical care attestation.: If time is entered above; I have spent that time in minutes in the direct care of this critically ill patient, excluding procedure time. ED Disposition Clinical Impression: Sepsis, Altered mental status Disposition: OP ADMIT IP TO THIS HOSP Is pt being admited?: Yes Does the pt Need Aspirin: No Condition: Stable Referrals: PRIMARY CARE, [Primary Care Provider] - 3-5 Days Time of Disposition: 04:12
[2017-04-21 04:26] LABS: Bilirubin,Urine NEG (Negative); Blood,Urine NEG (Negative); Ketones,Urine NEG (Negative); Leukocyte Esterase,Urine NEG (Negative); Mucus,Urine FEW /HPF; Nitrite,Urine NEG (Negative); Protein,Urine <15 mg/dL mg/dL (Negative)
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
[2017-04-21 05:35] LABS: Basophils % (Manual) 0 % (0.0-1.8); Blastocytes % (Manual) 0 %
[2017-04-21 05:36] LABS: Anisocytosis Few; Burr Cells Rare; Diff Status Complete; Platelet Estimate Consistent w Auto
[2017-04-21] MEDS ORDERED: TYLENOL PO PRN (08:25)
[2017-04-21] MEDS ORDERED: DULCOLAX PR PRN (08:25)
[2017-04-21] MEDS ORDERED: MORPHINE IV PRN (08:25)
[2017-04-21] MEDS ORDERED: MILK OF MAGNESIA PO PRN (08:25)
[2017-04-21] MEDS ORDERED: ZOFRAN IV PRN (08:25)
[2017-04-21] MEDS ORDERED: ZOSYN/NS 4.5GM/100ML 4.5 GM/100 ML VIAL IV SCH (09:00)
--- NOTE | 2017-04-21 09:21 | History and Physical Report ---
CHIEF COMPLAINT: Altered mental status for a couple of days. HISTORY OF PRESENT ILLNESS: This 62-year-old -[place] male was recently discharged after being treated for acute encephalopathy, sepsis, hyponatremia, left lower lobe pneumonia and right gluteal abscess/cellulitis. The patient has right upper extremity contractures. No fever. The patient with altered sensorium. Confused. Not near baseline. PAST MEDICAL HISTORY: Significant for cerebrovascular accident and right upper extremity contractures. SOCIAL HISTORY: Does not smoke. PAST SURGICAL HISTORY: Unavailable. FAMILY HISTORY: Hypertension. CURRENT MEDICATIONS: Include levofloxacin and doxycycline. REVIEW OF SYSTEMS: Significant for altered sensorium and low grade fever. Otherwise, review of systems is essentially negative. Right upper extremity contractures present. PHYSICAL EXAMINATION: GENERAL: Elderly male, was talking to me when I examined the patient. VITAL SIGNS: Her blood pressure was 136/71, temperature was 98, pulse rate 94, respirations 16. HEENT: Unremarkable. Pupils equal and reactive. NECK: Supple, no lymphadenopathy, no thyromegaly. LUNGS: Clear to auscultation and percussion. Good air entry. CARDIOVASCULAR: S1, S2 heard. No gallop, no murmur, no rub. Apical impulse in left fifth intercostal space and midclavicular line. ABDOMEN: Soft and benign. No hepatosplenomegaly. No guarding, no rigidity. Hernial orifices are normal. EXTREMITIES: Good pedal pulses. No pedal edema. CENTRAL NERVOUS SYSTEM: Confused and lethargic. Intermittently, alert and oriented. Was talking to me when I was examining. SKIN: Right gluteal cellulitis present. LABORATORY DATA: Significant for white count of 4500, hemoglobin 14 and hematocrit 42. Electrolytes are normal. Potassium is 3.1 and lactic acid is 3.7. BNP is 1507. Urine was negative. ASSESSMENT AND PLAN: 1. Sepsis, possibly unlikely. White count is normal. The patient is alert and nearly oriented. The patient was recently treated. Lactic acid may be a false positive. Very high sensitivity for lactic acid but no such . We will give empiric antibiotics for a couple of days, may discontinue tomorrow. At this point, I am more in favor dehydration and needing IV fluids than IV antibiotics. 2. Dehydration. Continue IV fluids. Dehydration may be the cause of his altered sensorium. 3. Acute encephalopathy, possibly secondary to dehydration. Sepsis unlikely. We will give empiric antibiotics for 48 hours and discharge him if he is doing well. 4. Right gluteal cellulitis. Antibiotics and wound care as outpatient. 5. DVT prophylaxis, Lovenox. JOB# [id number] ARIELLE/DENISE
[2017-04-21] MEDS: NACL 0.9% 1000 ML 1,000 ML IV SCH (10:27)
[2017-04-21] MEDS: LOVENOX SUB-Q SCH (11:28)
[2017-04-21] MEDS: ZOSYN/NS 4.5GM/100ML 4.5 GM/100 ML VIAL IV SCH ×3 (15:44→22:18)
[2017-04-22] MEDS: NACL 0.9% 1000 ML 1,000 ML IV SCH ×3 (02:50→22:25)
[2017-04-22 05:54] LABS: Hematocrit 36.2 % (35.5-45.6); Mean Corpuscular HGB Conc 33 % (32-34); Mean Corpuscular Hemoglobin 31 pg (28-32); Mean Corpuscular Volume 93 fl (84-94); Platelet Count 120 K/mm3 (140-440); Red Cell Distribution Width 14.4 % (13.2-15.2); White Blood Count 3.9 K/mm3 (4.5-11.0)
[2017-04-22 06:11] LABS: Alanine Aminotransferase 26 units/L (7-56); Albumin 2.6 g/dL (3.9-5); Albumin/Globulin Ratio 0.8 %; Alkaline Phosphatase 77 units/L (35-129); Anion Gap 13 mmol/L; BUN/Creatinine Ratio 5; Blood Urea Nitrogen 3 mg/dL (9-20); Calcium 7.3 mg/dL (8.4-10.2); Carbon Dioxide 26 mmol/L (22-30); Chloride 104.6 mmol/L (98-107); Glucose 95 mg/dL (75-100); Sodium 141 mmol/L (137-145); Total Protein 5.7 g/dL (6.3-8.2)
[2017-04-22 06:51] LABS: Basophils % (Manual) 0 % (0.0-1.8); Blastocytes % (Manual) 0 %
[2017-04-22 06:52] LABS: Anisocytosis 1+; Diff Status Complete; Platelet Estimate Consistent w Auto
[2017-04-22] MEDS: ZOSYN/NS 4.5GM/100ML 4.5 GM/100 ML VIAL IV SCH ×3 (06:54→22:02)
--- NOTE | 2017-04-22 09:17 | Progress Note ---
Assessment and Plan Assessment and plan: 62 yo man with old CVA/residual weakness and contractures, recently treated for sepsis secondary to pneumonia and right lateral abscess, hyponatremia and acute encephalopathy, brought back to the hospital for change in mental status 1. Presumed sepsis UA negative, chest x-ray and CT abdomen/pelvis with no acute findings Cultures obtained Started on empirical antibiotics and IV fluids 2. Acute metabolic encephalopathy Due to possible sepsis/electrolyte abnormalities/dehydration Treat underlying conditions 3. Hypokalemia Replete and recheck 4. Right gluteal wound Wound care, antibiotics 5. CVA CT head showing right temporal craniotomy with right frontal lobe encephalomalacia, no acute findings 6. DVT prophylaxis History Interval history: No acute events overnight, no fever Hospitalist Physical - Constitutional Vitals: Temp Pulse Resp BP Pulse Ox 98.3 F 106 H 20 151/93 91 04/22/17 07:24 04/22/17 07:24 04/22/17 07:24 04/22/17 07:24 04/22/17 07:24 General appearance: Present: no acute distress - EENT Eyes: Present: PERRL - Neck Neck: Present: supple. Absent: enlarged thyroid, masses or JVD - Respiratory Respiratory effort: normal Respiratory: bilateral: diminished, negative: rhonchi, wheezing - Cardiovascular Rhythm: other (tachycardic) Heart Sounds: Present: S1 & S2. Absent: systolic murmur - Extremities Extremities: no ischemia, abnormal (contractures) - Abdominal General gastrointestinal: soft, non-tender, non-distended, normal bowel sounds Results - Labs CBC & Chem 7: 04/22/17 05:09 04/22/17 05:09 Labs: Laboratory Last Values WBC 3.9 K/mm3 (4.5-11.0) L 04/22/17 05:09 RBC 3.90 M/mm3 (3.65-5.03) 04/22/17 05:09 Hgb 12.0 gm/dl (11.8-15.2) 04/22/17 05:09 Hct 36.2 % (35.5-45.6) D 04/22/17 05:09 MCV 93 fl (84-94) 04/22/17 05:09 MCH 31 pg (28-32) 04/22/17 05:09 MCHC 33 % (32-34) 04/22/17 05:09 RDW 14.4 % (13.2-15.2) 04/22/17 05:09 Plt Count 120 K/mm3 (140-440) L 04/22/17 05:09 [place] % (Auto) Head Usher 04/22/17 05:09 Add Manual Diff Complete 04/22/17 05:09 Total Counted 100 04/22/17 05:09 Seg Neutrophils % Head Usher 04/22/17 05:09 Seg Neuts % (Manual) 37.0 % (40.0-70.0) L 04/22/17 05:09 Band Neutrophils % 6.0 % 04/22/17 05:09 Lymphocytes % (Manual) 33.0 % (13.4-35.0) 04/22/17 05:09 Reactive Lymphs % (Man) 1.0 % 04/22/17 05:09 Monocytes % (Manual) 20.0 % (0.0-7.3) H 04/22/17 05:09 Eosinophils % (Manual) 3.0 % (0.0-4.3) 04/22/17 05:09 Basophils % (Manual) 0 % (0.0-1.8) 04/22/17 05:09 Metamyelocytes % 0 % 04/22/17 05:09 Myelocytes % 0 % 04/22/17 05:09 Promyelocytes % 0 % 04/22/17 05:09 Blast Cells % 0 % 04/22/17 05:09 Nucleated RBC % Not Reportable 04/22/17 05:09 Seg Neutrophils # Man 1.4 K/mm3 (1.8-7.7) L 04/22/17 05:09 Band Neutrophils # 0.2 K/mm3 04/22/17 05:09 Lymphocytes # (Manual) 1.3 K/mm3 (1.2-5.4) 04/22/17 05:09 Abs React Lymphs (Man) 0.0 K/mm3 04/22/17 05:09 Monocytes # (Manual) 0.8 K/mm3 (0.0-0.8) 04/22/17 05:09 Eosinophils # (Manual) 0.1 K/mm3 (0.0-0.4) 04/22/17 05:09 Basophils # (Manual) 0.0 K/mm3 (0.0-0.1) 04/22/17 05:09 Metamyelocytes # 0.0 K/mm3 04/22/17 05:09 Myelocytes # 0.0 K/mm3 04/22/17 05:09 Promyelocytes # 0.0 K/mm3 04/22/17 05:09 Blast Cells # 0.0 K/mm3 04/22/17 05:09 WBC Morphology Not Reportable 04/22/17 05:09 Hypersegmented Neuts Not Reportable 04/22/17 05:09 Hyposegmented Neuts Not Reportable 04/22/17 05:09 Hypogranular Neuts Not Reportable 04/22/17 05:09 Smudge Cells Not Reportable 04/22/17 05:09 Toxic Granulation Not Reportable 04/22/17 05:09 Toxic Vacuolation Not Reportable 04/22/17 05:09 Dohle Bodies Not Reportable 04/22/17 05:09 Pelger-Huet Anomaly Not Reportable 04/22/17 05:09 Nasir Rods Not Reportable 04/22/17 05:09 Platelet Estimate Consistent w auto 04/22/17 05:09 Clumped Platelets Not Reportable 04/22/17 05:09 Plt Clumps, EDTA Not Reportable 04/22/17 05:09 Large Platelets Not Reportable 04/22/17 05:09 Giant Platelets Not Reportable 04/22/17 05:09 Platelet Satelliting Not Reportable 04/22/17 05:09 Plt Morphology Comment Not Reportable 04/22/17 05:09 RBC Morphology Not Reportable 04/22/17 05:09 Dimorphic RBCs Not Reportable 04/22/17 05:09 Polychromasia Not Reportable 04/22/17 05:09 Hypochromasia Not Reportable 04/22/17 05:09 Poikilocytosis Not Reportable 04/22/17 05:09 Anisocytosis 1+ 04/22/17 05:09 Microcytosis Not Reportable 04/22/17 05:09 Macrocytosis Not Reportable 04/22/17 05:09 Spherocytes Not Reportable 04/22/17 05:09 Pappenheimer Bodies Not Reportable 04/22/17 05:09 Sickle Cells Not Reportable 04/22/17 05:09 Target Cells Not Reportable 04/22/17 05:09 Tear Drop Cells Not Reportable 04/22/17 05:09 Ovalocytes Not Reportable 04/22/17 05:09 Helmet Cells Not Reportable 04/22/17 05:09 [place] Bodies Not Reportable 04/22/17 05:09 [place] Rings Not Reportable 04/22/17 05:09 [place] Cells Not Reportable 04/22/17 05:09 Bite Cells Not Reportable 04/22/17 05:09 Crenated Cell Not Reportable 04/22/17 05:09 Elliptocytes Not Reportable 04/22/17 05:09 Acanthocytes (Spur) Not Reportable 04/22/17 05:09 Rouleaux Not Reportable 04/22/17 05:09 Hemoglobin C Crystals Not Reportable 04/22/17 05:09 Schistocytes Not Reportable 04/22/17 05:09 Malaria parasites Not Reportable 04/22/17 05:09 Vinicius Bodies Not Reportable 04/22/17 05:09 Hem Pathologist Commnt No 04/22/17 05:09 PT 13.8 Sec. (12.2-14.9) 04/21/17 00:56 INR 1.01 (0.87-1.13) 04/21/17 00:56 APTT 31.3 Sec. (24.2-36.6) 04/21/17 00:56 Sodium 141 mmol/L (137-145) 04/22/17 05:09 Potassium 3.0 mmol/L (3.6-5.0) L 04/22/17 05:09 Chloride 104.6 mmol/L (98-107) 04/22/17 05:09 Carbon Dioxide 26 mmol/L (22-30) 04/22/17 05:09 Anion Gap 13 mmol/L 04/22/17 05:09 BUN 3 mg/dL (9-20) L 04/22/17 05:09 Creatinine 0.6 mg/dL (0.8-1.5) L 04/22/17 05:09 Estimated GFR > 60 ml/min 04/22/17 05:09 BUN/Creatinine Ratio 5 % 04/22/17 05:09 Glucose 95 mg/dL (75-100) 04/22/17 05:09 Hemoglobin A1c 5.5 % (4-6) 04/21/17 08:39 Lactic Acid 3.70 mmol/L (0.7-2.0) H* 04/21/17 00:56 Calcium 7.3 mg/dL (8.4-10.2) L D 04/22/17 05:09 Magnesium 1.90 mg/dL (1.7-2.3) 04/21/17 00:56 Total Bilirubin 0.80 mg/dL (0.1-1.2) 04/22/17 05:09 AST 40 units/L (5-40) 04/22/17 05:09 ALT 26 units/L (7-56) 04/22/17 05:09 Alkaline Phosphatase 77 units/L (35-129) 04/22/17 05:09 Ammonia 20.0 umol/L (25-60) L 04/21/17 00:56 Total Creatine Kinase 179 units/L (55-170) H 04/21/17 00:56 Troponin T 0.011 ng/mL (0.00-0.029) 04/21/17 00:56 NT-Pro-B Natriuret Pep 1507 pg/mL (0-900) H 04/21/17 02:28 Total Protein 5.7 g/dL (6.3-8.2) L D 04/22/17 05:09 Albumin 2.6 g/dL (3.9-5) L 04/22/17 05:09 Albumin/Globulin Ratio 0.8 % 04/22/17 05:09 TSH 3.050 mlU/mL (0.270-4.200) 04/21/17 00:56 Urine Color Yellow (Yellow) 04/21/17 03:39 Urine Turbidity Clear (Clear) 04/21/17 03:39 Urine pH 7.0 (5.0-7.0) 04/21/17 03:39 Ur Specific [place] 1.013 (1.003-1.030) 04/21/17 03:39 Urine Protein <15 mg/dl mg/dL (Negative) 04/21/17 03:39 Urine Glucose (UA) 50 mg/dL (Negative) 04/21/17 03:39 Urine Ketones Neg mg/dL (Negative) 04/21/17 03:39 Urine Blood Neg (Negative) 04/21/17 03:39 Urine Nitrite Neg (Negative) 04/21/17 03:39 Urine Bilirubin Neg (Negative) 04/21/17 03:39 Urine Urobilinogen 4.0 mg/dL (<2.0) 04/21/17 03:39 Ur Leukocyte Esterase Neg (Negative) 04/21/17 03:39 Urine WBC (Auto) 2.0 /HPF (0.0-6.0) 04/21/17 03:39 Urine RBC (Auto) 5.0 /HPF (0.0-6.0) 04/21/17 03:39 Amorphous Crystals Few 04/21/17 03:39 Hyaline Casts 5 /LPF 04/21/17 03:39 Urine Mucus Few /HPF 04/21/17 03:39 Urine Opiates Screen Presumptive negative 04/21/17 03:39 Urine Methadone Screen Presumptive negative 04/21/17 03:39 Ur Barbiturates Screen Presumptive negative 04/21/17 03:39 Ur Phencyclidine Scrn Presumptive negative 04/21/17 03:39 Ur Amphetamines Screen Presumptive negative 04/21/17 03:39 U Benzodiazepines Scrn Presumptive negative 04/21/17 03:39 Urine Cocaine Screen Presumptive negative 04/21/17 03:39 U Marijuana (THC) Screen Presumptive negative 04/21/17 03:39 Drugs of Abuse Note Disclamer 04/21/17 03:39 - Imaging and Cardiology CT scan - abdomen: report reviewed CT Scan - head: report reviewed
[2017-04-22] MEDS: LOVENOX SUB-Q SCH (10:01)
[2017-04-22] MEDS: KCL 10MEQ/100ML 10 MEQ/100 ML BAG IV SCH ×4 (13:30→20:46)
[2017-04-23] MEDS: ZOSYN/NS 4.5GM/100ML 4.5 GM/100 ML VIAL IV SCH ×2 (05:23→15:54)
[2017-04-23 05:26] LABS: Hematocrit 37.1 % (35.5-45.6); Hemoglobin 12.4 gm/dl (11.8-15.2); Mean Corpuscular HGB Conc 33 % (32-34); Mean Corpuscular Hemoglobin 31 pg (28-32); Mean Corpuscular Volume 93 fl (84-94); Platelet Count 107 K/mm3 (140-440); White Blood Count 3.9 K/mm3 (4.5-11.0)
[2017-04-23 05:49] LABS: Anion Gap 15 mmol/L; BUN/Creatinine Ratio 5; Blood Urea Nitrogen 3 mg/dL (9-20); Calcium 7.7 mg/dL (8.4-10.2); Carbon Dioxide 24 mmol/L (22-30); Glucose 90 mg/dL (75-100); Potassium 3.5 mmol/L (3.6-5.0); Sodium 141 mmol/L (137-145)
[2017-04-23 06:00] LABS: Blastocytes % (Manual) 0 %
[2017-04-23 06:02] LABS: Diff Status Complete; Platelet Estimate Appears Decreased
[2017-04-23] MEDS: NACL 0.9% 1000 ML 1,000 ML IV SCH (09:26)
[2017-04-23] MEDS: LOVENOX SUB-Q SCH (09:27)
[2017-04-23] MEDS ORDERED: K-DUR PO ONE (11:00)
--- NOTE | 2017-04-23 15:02 | Progress Note ---
Assessment and Plan /Presumed sepsis UA negative, chest x-ray and CT abdomen/pelvis with no acute findings Cultures obtained Started on empirical antibiotics and IV fluids pt afebrile, White count normal has rt thigh wound, will stop iv fluid and will change abx to oral /Acute metabolic encephalopathy Due to possible sepsis/electrolyte abnormalities/dehydration Treating underlying conditions /Hypokalemia Replete and recheck in the am improving /Right gluteal wound Wound care following, antibiotics changed to po today /CVA, h/o CT head showing right temporal craniotomy with right frontal lobe encephalomalacia, no acute findings /Moderate to severe protein calorie malnutrition will order prealbumin nutrition consult /HTN place on low dose lopressor /DVT prophylaxis on lovenox Radiological data: Ct head: Right encephalomalacia and no acute changes CT abdomen and pelvis: No acute changes. 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 Subjective Date of service: 04/23/17 Interval history: Patient seen and examined. Medical records and medication list reviewed. No acute event overnight noted by the RN. Patient denies any chest pain or difficulty breathing. Patient is tolerating diet. Discussed plan of care at bedside with patient. He was residing with his sister now states no where to go Objective - Exam Narrative Exam: General appearance: Present: no acute distress - EENT Eyes: Present: PERRL - Neck Neck: Present: supple. Absent: enlarged thyroid, masses or JVD - Respiratory Respiratory effort: normal Respiratory: bilateral: diminished, negative: rhonchi, wheezing - Cardiovascular Rhythm: other (tachycardic) Heart Sounds: Present: S1 & S2. Absent: systolic murmur - Skin HAS OPEN WOUND TO RIGHT THIGH WITH YELLOW SLOUGH-WOUND MEASURES 2.5X5X0.2 - Extremities Extremities: no ischemia, abnormal (contractures) - Psych cooperative, no anxiety - Abdominal General gastrointestinal: soft, non-tender, non-distended, normal bowel sounds - Constitutional Vitals: Vital Signs - 12hr 04/23/17 04/23/17 07:16 11:59 Temperature 98.2 F 98.4 F Pulse Rate 97 H 78 Respiratory 18 20 Rate Blood Pressure 139/91 140/93 O2 Sat by Pulse 90 91 Oximetry General appearance: Present: no acute distress - Neurologic Neurologic: CNII-XII intact, no gait normal - Psychiatric Psychiatric: appropriate mood/affect - Labs CBC & Chem 7: 04/23/17 04:51 04/23/17 04:51 Labs: Abnormal lab results 04/23/17 04/23/17 Range/Units 04:51 04:51 WBC 3.9 L (4.5-11.0) K/mm3 Plt Count 107 L (140-440) K/mm3 Monocytes % (Manual) 20.0 H (0.0-7.3) % Seg Neutrophils # Man 1.7 L (1.8-7.7) K/mm3 Potassium 3.5 L (3.6-5.0) mmol/L BUN 3 L (9-20) mg/dL Creatinine 0.6 L (0.8-1.5) mg/dL Calcium 7.7 L (8.4-10.2) mg/dL - Imaging and cardiology CT scan - abdomen: report reviewed CT Scan - head: report reviewed CT scan - pelvis: report reviewed
[2017-04-23] MEDS: AUGMENTIN 875 MG PO SCH (22:23)
[2017-04-23] MEDS: LOPRESSOR PO SCH (22:25)
[2017-04-24 06:26] LABS: Anion Gap 16 mmol/L; BUN/Creatinine Ratio 12; Blood Urea Nitrogen 6 mg/dL (9-20); Carbon Dioxide 22 mmol/L (22-30); Chloride 105.3 mmol/L (98-107); Glucose 95 mg/dL (75-100); Potassium 4.1 mmol/L (3.6-5.0); Sodium 139 mmol/L (137-145)
[2017-04-24] MEDS: LOPRESSOR PO SCH ×2 (09:43→21:59)
[2017-04-24] MEDS: AUGMENTIN 875 MG PO SCH ×2 (09:43→21:59)
[2017-04-24] MEDS: LOVENOX SUB-Q SCH (09:45)
--- NOTE | 2017-04-24 13:50 | Discharge Summary ---
Providers - Providers Date of Admission: 04/21/17 09:08 Date of discharge: 04/25/17 Attending physician: DIANNA EPSTEIN 04/21/17 12:39 Consult to Wound/ET Nurse [CONS] Routine Reason For Exam: wound eval 04/23/17 15:17 Consult to Case Management [CONS] Routine Services Needed at Discharge: Other Notified:: COPY GIVEN TO CM Additional Physician Instructions: placement 04/23/17 21:40 Consult to Dietitian/Nutrition [CONS] Routine Physician Instructions: Reason For Exam: Reason for Consult: Malnutrition Primary care physician: [employer] Hospitalization Condition: Stable Hospital course: Brief history: 62 yo man with 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 Discharge diagnosis and management: /Presumed sepsis UA negative, chest x-ray and CT abdomen/pelvis with no acute findings Cultures obtained Started on empirical antibiotics and IV fluids patient afebrile, White count normal has right thigh wound, will stop iv fluid and will change abx to oral /Acute metabolic encephalopathy Due to possible sepsis/electrolyte abnormalities/dehydration Treating underlying conditions /Hypokalemia Repleted and resolved /Right gluteal wound Wound care following, antibiotics changed to po today /CVA, h/o CT head showing right temporal craniotomy with right frontal lobe encephalomalacia, no acute findings /Moderate to severe protein calorie malnutrition will order prealbumin nutrition consult /HTN place on low dose lopressor /DVT prophylaxis on lovenox Radiological data: Ct head: Right encephalomalacia and no acute changes CT abdomen and pelvis: No acute changes. Disposition: [id number]/[place]-03 SNF [facility] C[facility] Time spent for discharge: 32 minutes Core Measure Documentation - Palliative Care Palliative Care/ Comfort Measures: Not Applicable - Core Measures Any of the following diagnoses?: none Exam - Physical Exam Narrative exam: General appearance: Present: no acute distress - EENT Eyes: Present: PERRL - Neck Neck: Present: supple. Absent: enlarged thyroid, masses or JVD - Respiratory Respiratory effort: normal Respiratory: bilateral: diminished, negative: rhonchi, wheezing - Cardiovascular Rhythm: other (tachycardic) Heart Sounds: Present: S1 & S2. Absent: systolic murmur - Skin HAS OPEN WOUND TO RIGHT THIGH WITH YELLOW SLOUGH-WOUND MEASURES 2.5X5X0.2 - Extremities Extremities: no ischemia, abnormal (contractures) - Psych cooperative, no anxiety - Abdominal General gastrointestinal: soft, non-tender, non-distended, normal bowel sounds - Constitutional Vitals: Temp Pulse Resp BP Pulse Ox 98.3 F 89 20 136/87 95 04/24/17 07:24 04/24/17 09:43 04/24/17 07:24 04/24/17 09:43 04/24/17 07:24 Plan Activity: up only with assistance Diet: low fat, low salt Wound: per wound nurse instructions Follow up with: PRIMARY CARE, [Primary Care Provider] - 3-5 Days Prescriptions: Amoxicillin/K Clav Tab [Augmentin 875MG TAB] 1 each PO Q12HR #10 tablet Metoprolol [Lopressor TAB] 12.5 mg PO BID #60 tablet
--- NOTE | 2017-04-24 19:52 | Progress Note ---
Assessment and Plan /Presumed sepsis UA negative, chest x-ray and CT abdomen/pelvis with no acute findings Cultures obtained and Started on empirical antibiotics and IV fluids pt afebrile, White count normal has rt thigh wound, on oral abx now /Acute metabolic encephalopathy Due to possible sepsis/electrolyte abnormalities/dehydration Treating underlying conditions /Hypokalemia Repleted and resolved /Right gluteal wound Wound care following, antibiotics changed to po /CVA, h/o CT head showing right temporal craniotomy with right frontal lobe encephalomalacia, no acute findings /Moderate to severe protein calorie malnutrition will order prealbumin nutrition consult /HTN place on low dose lopressor /DVT prophylaxis on lovenox Radiological data: Ct head: Right encephalomalacia and no acute changes CT abdomen and pelvis: No acute changes. 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 Subjective Date of service: 04/24/17 Interval history: Patient seen and examined. Medical records and medication list reviewed. No acute event overnight noted by the RN. Patient denies any chest pain or difficulty breathing. Patient is tolerating diet. Discussed plan of care at bedside with patient. He discharge is pending on SNF placement. Objective - Exam Narrative Exam: General appearance: Present: no acute distress - EENT Eyes: Present: PERRL - Neck Neck: Present: supple. Absent: enlarged thyroid, masses or JVD - Respiratory Respiratory effort: normal Respiratory: bilateral: diminished, negative: rhonchi, wheezing - Cardiovascular Rhythm: other (tachycardic) Heart Sounds: Present: S1 & S2. Absent: systolic murmur - Skin HAS OPEN WOUND TO RIGHT THIGH WITH minimal YELLOW SLOUGH-WOUND MEASURES 2.5X5X0.2 - Extremities Extremities: no ischemia, abnormal (contractures) - Psych cooperative, no anxiety - Abdominal General gastrointestinal: soft, non-tender, non-distended, normal bowel sounds - Constitutional Vitals: Vital Signs - 12hr 04/24/17 04/24/17 04/24/17 08:45 09:43 11:39 Temperature 98.3 F Pulse Rate 89 Respiratory 22 18 Rate Blood Pressure 136/87 114/83 O2 Sat by Pulse 92 Oximetry 04/24/17 16:18 Temperature 98.2 F Pulse Rate 80 Respiratory 20 Rate Blood Pressure 136/81 O2 Sat by Pulse 96 Oximetry - Labs CBC & Chem 7: 04/23/17 04:51 04/24/17 05:19 Labs: Abnormal lab results 04/24/17 Range/Units 05:19 BUN 6 L (9-20) mg/dL Creatinine 0.5 L (0.8-1.5) mg/dL Calcium 8.0 L (8.4-10.2) mg/dL
[2017-04-25] MEDS: LOVENOX SUB-Q SCH (10:11)
[2017-04-25] MEDS: AUGMENTIN 875 MG PO SCH (10:11)
[2017-04-25] MEDS: LOPRESSOR PO SCH (10:11)
[2017-04-25 17:40] VITALS: BP 134/79
== END 2017-04-25 18:10 | DRG 871 ==
LOC: ED 19:12 → 3A 04-21 09:08
PROVIDERS: ADMIT Internal Medicine; ATTEND Internal Medicine
DX: A41.9 Sepsis, unspecified organism (principal); G93.41 Metabolic encephalopathy; E43 Unspecified severe protein-calorie malnutrition; L03.317 Cellulitis of buttock; I69.359 Hemiplegia and hemiparesis following cerebral infarction affecting unspecified side; E87.6 Hypokalemia; S31.819A Unspecified open wound of right buttock, initial encounter; G93.89 Other specified disorders of brain; E86.0 Dehydration; Z53.29 Procedure and treatment not carried out because of patient's decision for other reasons; X58.XXXA Exposure to other specified factors, initial encounter; S31.000A Unspecified open wound of lower back and pelvis without penetration into retroperitoneum, initial encounter; Z82.49 Family history of ischemic heart disease and other diseases of the circulatory system; Z79.2 Long term (current) use of antibiotics; I69.398 Other sequelae of cerebral infarction; Z68.27 Body mass index [BMI] 27.0-27.9, adult; Z87.01 Personal history of pneumonia (recurrent); Y93.89 Activity, other specified; Y92.89 Other specified places as the place of occurrence of the external cause; Y99.8 Other external cause status
CPT/HCPCS: 36415; 70450; 74177; 80048; 80053; 80307; 81001; 82140; 82550; 83036; 83735; 83880; 84443; 84484; 85007; 85025; 85610; 85730; 87040; 93005; 93010; J1650; J2405; J2543; J3480; J7030; Q9967